=== PATIENT | male | born 1950 | race Caucasian/White ===

== ENCOUNTER 2025-03-03 15:53 | Outpatient (CLI) | payer OTHER, MEDICARE | END 2025-03-03 15:54 | disposition home or self-care (01) | LOC: LABBT 15:53 | PROVIDERS: ATTEND Thoracic Surgery (Cardiothoracic Vascular Surgery) | DX: Z01.818 Encounter for other preprocedural examination (principal); I71.40 Abdominal aortic aneurysm, without rupture, unspecified | CPT/HCPCS: 80048; 85025; 86850; 86900; 86901; 93005; 93010 ==